=== PATIENT | male | born 1945 | race Caucasian/White ===

== ENCOUNTER → 2016-12-21 | Outpatient (CLI) | payer OTHER ==
[~2016-12-21] MED LIST: DEPO METHYLPREDNISOLONE 80 MG/ML SDV ONE; IOPAMIDOL (ISOVUE-370) 150 ML BTL IV ONE; LIDOCAINE 1% 30 ML SDV ONE; NA BICARBONATE 50 MEQ/50 ML VIAL ONE; ROPIVACAINE HCL 150 MG/30 ML INJ ONE
== END ==
LOC: FIMAGING 12:42
PROVIDERS: ATTEND Orthopaedic Surgery
DX: M16.0 Bilateral primary osteoarthritis of hip (principal)
CPT/HCPCS: 20610; J1020; J2795; Q9967

== ENCOUNTER → 2017-03-02 | Outpatient (CLI) | payer OTHER | LOC: FIMAGING 08:37 | PROVIDERS: ATTEND Orthopaedic Surgery | DX: Z01.818 Encounter for other preprocedural examination (principal); M16.12 Unilateral primary osteoarthritis, left hip ==

== ENCOUNTER 2017-06-13 06:38 | Inpatient (IN) | payer OTHER ==
--- NOTE | 2017-06-13 06:36 | PDHPUP ---
History & Physical Update H&P update statement: This history and physical update is based on an assessment of the patient which was completed after admission or registration (within 24 hours), but prior to the surgery/procedure.
--- NOTE | 2017-06-13 06:37 | PDIAF ---
- Diagnosis Diagnosis: left hip djd Code Status: Full Code - Medication Management Discharge Medications: Medications to Continue on Transfer Atorvastatin Calcium [Lipitor 20 mg (*)] 20 mg PO DAILY 12/02/13 [Last Taken Unknown] Indomethacin 75 mg PO BID 12/02/13 [Last Taken Unknown] Acetaminophen [Tylenol 325mg (*)] 4 tab PO BID PRN 05/13/17 [Last Taken Unknown] Ascorbic Acid [Vitamin C 500 mg (*)] 500 mg PO BID 05/13/17 [Last Taken Unknown] Cholecalciferol Vit D3 [Vitamin D3 2000 units tab (OTC)] 2,000 units PO DAILY [Last Taken Unknown] Cyanocobalamin [Vitamin B12 (*)] 1,000 mcg PO DAILY 05/13/17 [Last Taken Unknown ] Cyclobenzaprine [Flexeril 10 MG (*)] 10 mg PO HS 05/13/17 [Last Taken Unknown] Folic Acid [Folic Acid 1 MG (*)] 800 mcg PO DAILY 05/13/17 [Last Taken Unknown] Glucosamine/Chondroitin [Glucosamine/Chondroitin (*)] 1 each PO DAILY 05/13/17 [ Last Taken Unknown] Herbals/Supplements -Info Only 1 ea PO DAILY 05/13/17 [Last Taken Unknown] Lisinopril/Hctz 20/12.5MG [Zestoretic/Prinzide 20/12.5MG (*)] 1 ea PO BID [Last Taken Unknown] Loratadine 10 mg PO DAILY PRN 05/13/17 [Last Taken Unknown] Multivitamins [Multivitamin (*)] 1 each PO DAILY 05/13/17 [Last Taken Unknown] [place]-3 Fatty Acids [Fish Oil 1000 mg (*)] 1,000 mg PO DAILY 05/13/17 [Last Taken Unknown] Omeprazole [Prilosec 20 mg] 20 mg PO BID 05/13/17 [Last Taken Unknown] Vitamin B Complex [B Complex] 1 each PO DAILY 05/13/17 [Last Taken Unknown] amLODIPine BESYLATE [Norvasc 5 mg (*)] 5 mg PO DAILY 05/13/17 [Last Taken Unknown] prednisoLONE ACET 1% [Pred Forte 1% (*)] 1 drops EACHEYE DAILY PRN 05/13/17 [ Last Taken Unknown] Discharge Medications: Refer to the Discharge Home Medication list for PRN reason. - Orders Services needed: Physical Therapy Activity/Weight Bearing Restrictions: wbat. anterior hip precautions. daily dressing changes. no soaking or immersion. f/u at two weeks [facility]. seek attn for increasing pain, cp, sob - Follow Up Care Current Providers and Referrals: Los Alfonso MD [Primary Care Provider] -
[~2017-06-13 06:38] MED LIST changes: -DEPO METHYLPREDNISOLONE 80 MG/ML SDV ONE; -IOPAMIDOL (ISOVUE-370) 150 ML BTL IV ONE; -LIDOCAINE 1% 30 ML SDV ONE; -NA BICARBONATE 50 MEQ/50 ML VIAL ONE; +ROPI/epiNEPH/KETOROLAC/morphINE JOINT COCKTAIL IU ONE; -ROPIVACAINE HCL 150 MG/30 ML INJ ONE; +TRANEXAMIC ACID 1,860 MG in NS 100 ML IV ONE
[2017-06-13] MEDS ORDERED: LIDOCAINE 1% 2 ML INJ ID PRN (07:38)
[2017-06-13] MEDS ORDERED: LR 1,000 ML IV ONE (07:38)
[2017-06-13] MEDS ORDERED: THROMBIN (BOVINE) 5,000 UNIT VIAL TP ONE (07:48)
[2017-06-13] MEDS ORDERED: CALCIUM CHLORIDE 1 GM/10 ML INJ ONE (07:49)
[2017-06-13] MEDS ORDERED: ceFAZolin 1 GM/5 ML SYR ONE ×2 (07:50→08:13)
[2017-06-13] MEDS ORDERED: PROPOFOL/EMULSION 500 MG/50 ML BOTTLE IV ONE ×2 (07:59→09:40)
[2017-06-13] MEDS ORDERED: MIDAZOLAM 2 MG/2 ML VIAL ONE (08:01)
[2017-06-13] MEDS ORDERED: OXYCODONE/APAP 5/325 TAB PO PRN (08:02)
[2017-06-13] MEDS ORDERED: ceFAZolin 2 GM/DEXTROSE 100 ML IV ONE (08:02)
[2017-06-13] MEDS ORDERED: ALBUTEROL 3 ML DEYVIAL IH PRN (08:02)
[2017-06-13] MEDS ORDERED: NALOXONE HCL 0.4 MG/ML INJ IVP PRN (08:02)
[2017-06-13] MEDS ORDERED: ONDANSETRON 4 MG/2 ML VIAL IVP PRN ×2 (08:02→10:20)
[2017-06-13] MEDS ORDERED: HYDROCODONE/APAP 5/325 TAB PO PRN (08:02)
[2017-06-13] MEDS ORDERED: MIDAZOLAM 2 MG/2 ML VIAL IVP ONE (08:02)
[2017-06-13] MEDS ORDERED: ONDANSETRON 4 MG/2 ML VIAL ONE (08:06)
[2017-06-13] MEDS ORDERED: LIDOCAINE 2% 5 ML SDV ONE (08:06)
[2017-06-13] MEDS ORDERED: RANITIDINE 50 MG/2 ML VIAL ONE (08:06)
[2017-06-13] MEDS ORDERED: DEXAMETHASONE 4 MG/ML VIAL ONE (08:06)
--- NOTE | 2017-06-13 08:09 | PDANEPAE ---
ANE History of Present Illness L Hip Arthroplasty ANE Past Medical History - Cardiovascular History Hx Hypertension: Yes Hx Arrhythmias: No Hx Chest Pain: No Hx Coronary Artery / Peripheral Vascular Disease: No Hx CHF / Valvular Disease: No Hx Palpitations: No - Pulmonary History Hx COPD: No Hx Asthma/Reactive Airway Disease: No Hx Recent Upper Respiratory Infection: No Hx Oxygen in Use at Home: No Hx Sleep Apnea: No Sleep Apnea Screening Result - Last Documented: Positive - Neurologic History Hx Cerebrovascular Accident: No Hx Seizures: No Hx Dementia: No - Endocrine History Hx Diabetes: No - Renal History Hx Renal Disorders: No - Liver History Hx Hepatic Disorders: No - Neurological & Psychiatric Hx Hx Neurological and Psychiatric Disorders: No - Cancer History Hx Cancer: Yes Cancer History Comment: PROSTATE - Congenital Disorder History Hx Congenital Disorders: No - GI History Hx Gastrointestinal Disorders: No - Other Health History Other Health History: NONE - Chronic Pain History Chronic Pain: Yes - Surgical History Prior Surgeries: DEVIATED SEPTUM, NEREYDA SHOULDER SURGERY ANE Review of Systems Review of Systems: - Exercise capacity METS (RN): 4 METS ANE Patient History - Allergies Allergies/Adverse Reactions: CATS Allergy (Mild, Uncoded 04/13/10 09:47) ITCHY EYES ENVIRONMENTAL Allergy (Mild, Uncoded 04/13/10 09:48) SNEEZING/ITCHY, WATERY EYES - Home Medications Home Medications: Atorvastatin Calcium [Lipitor 20 mg (*)] 20 mg PO DAILY 12/02/13 [Last Taken ] Indomethacin 75 mg PO BID 12/02/13 [Last Taken 06/06/17] Acetaminophen [Tylenol 325mg (*)] 4 tab PO BID PRN 05/13/17 [Last Taken 06/08/17 ] Ascorbic Acid [Vitamin C 500 mg (*)] 500 mg PO BID 05/13/17 [Last Taken 06/12/17 ] Cholecalciferol Vit D3 [Vitamin D3 2000 units tab (OTC)] 2,000 units PO DAILY [Last Taken 06/12/17] Cyanocobalamin [Vitamin B12 (*)] 1,000 mcg PO DAILY 05/13/17 [Last Taken ] Cyclobenzaprine [Flexeril 10 MG (*)] 10 mg PO HS 05/13/17 [Last Taken 06/06/17] Folic Acid [Folic Acid 1 MG (*)] 800 mcg PO DAILY 05/13/17 [Last Taken 06/06/17] Glucosamine/Chondroitin [Glucosamine/Chondroitin (*)] 1 each PO DAILY 05/13/17 [ Last Taken 06/06/17] Herbals/Supplements -Info Only 1 ea PO DAILY 05/13/17 [Last Taken 06/12/17] Lisinopril/Hctz 20/12.5MG [Zestoretic/Prinzide 20/12.5MG (*)] 1 ea PO BID [Last Taken 06/12/17] Loratadine 10 mg PO DAILY PRN 05/13/17 [Last Taken 05/14/17] Multivitamins [Multivitamin (*)] 1 each PO DAILY 05/13/17 [Last Taken 06/06/17] [place]-3 Fatty Acids [Fish Oil 1000 mg (*)] 1,000 mg PO DAILY 05/13/17 [Last Taken 06/12/17] Omeprazole [Prilosec 20 mg] 20 mg PO BID 05/13/17 [Last Taken 06/12/17] Vitamin B Complex [B Complex] 1 each PO DAILY 05/13/17 [Last Taken 06/12/17] amLODIPine BESYLATE [Norvasc 5 mg (*)] 5 mg PO DAILY 05/13/17 [Last Taken ] prednisoLONE ACET 1% [Pred Forte 1% (*)] 1 drops EACHEYE DAILY PRN 05/13/17 [ Last Taken 06/06/17] - NPO status NPO Since - Liquids (Date): 06/12/17 NPO Since - Liquids (Time): 22:00 NPO Since - Solids (Date): 06/12/17 NPO Since - Solids (Time): 22:00 - Smoking Hx Smoking Status: Never smoked - Family Anes Hx Family Hx Anesthesia Complications: NONE ANE Labs/Vital Signs - Vital Signs Blood Pressure: 153/86 Heart Rate: 83 Respiratory Rate: 16 O2 Sat (%): 92 Height: 167.64 cm Weight: 92.986 kg ANE Physical Exam - Airway Neck exam: decreased ROM Mallampati Score: Class 2 Mouth exam: normal dental/mouth exam - Pulmonary Pulmonary: clear to auscultation - Cardiovascular Cardiovascular: regular rate and rhythym - ASA Status ASA Status: III ANE Anesthesia Plan Anesthesia Plan: spinal
[2017-06-13] MEDS ORDERED: PROPOFOL 200 MG/20 ML VIAL ONE (08:28)
[2017-06-13] MEDS ORDERED: fentaNYL 100 MCG/2 ML INJ ONE ×4 (08:30→12:06)
[2017-06-13] MEDS ORDERED: PHENYLEPHRINE HCL 100 MCG/ML SYR ONE (08:42)
[2017-06-13] MEDS ORDERED: HYDROmorphONE/DILAUDID 2 MG/ML INJ ONE (08:56)
[2017-06-13] MEDS ORDERED: TEMAZEPAM 15 MG CAP PO PRN (10:20)
[2017-06-13] MEDS ORDERED: MAGNESIUM HYDROXIDE 30 ML UDCUP PO PRN (10:20)
[2017-06-13] MEDS ORDERED: DIAZEPAM 5 MG TAB PO PRN (10:20)
[2017-06-13] MEDS ORDERED: LACTULOSE 20 GM/30 ML UDCUP PO PRN (10:20)
[2017-06-13] MEDS ORDERED: METOCLOPRAMIDE 10 MG/2 ML VIAL IVP PRN (10:20)
[2017-06-13] MEDS ORDERED: PROMETHAZINE HCL 25 MG/ML INJ IVP PRN (10:20)
[2017-06-13] MEDS ORDERED: ONDANSETRON DISINTEGRATING 4 MG TAB PO PRN (10:20)
[2017-06-13] MEDS ORDERED: PROMETHAZINE HCL 25 MG SUPPR PR PRN (10:20)
[2017-06-13] MEDS ORDERED: DIPHENOXYLATE/ATROPINE LOMOTIL 1 TAB PO PRN (10:20)
[2017-06-13] MEDS ORDERED: POLYETHYLENE GLYCOL 3350 17 GM PKT PO PRN (10:20)
[2017-06-13] MEDS ORDERED: BISACODYL 10 MG SUPP PR PRN (10:20)
[2017-06-13] MEDS ORDERED: diphenhydrAMINE 25 MG CAP PO PRN (10:20)
[2017-06-13] MEDS ORDERED: NON-FORMULARY NEW DRUG (Loratadine [Loratadine] 10 MG) PO PRN (10:21)
[2017-06-13] MEDS ORDERED: prednisoLONE ACET 1% 5 ML OPHT.BTL EACHEYE PRN (10:21)
--- NOTE | 2017-06-13 10:28 | POSTANESTH ---
Post Anesthetic Evaluation Cardiovascular Status: Normal, Stable Respiratory Status: Normal, Stable Level of Consciousness/Mental Status: Can Participate in Eval, Mildly Sleepy, Arousable Pain Control: Adequate, Prn Tx Ordered Nausea/Vomiting Control: Adequate, Prn Tx Ordered Complications Possibly Related to Anesthesia: None Noted
[2017-06-13] MEDS ORDERED: CETIRIZINE 10 MG TAB PO PRN (10:29)
[2017-06-13] MEDS ORDERED: LR 1,000 ML IV SCH (10:30)
[2017-06-13] MEDS ORDERED: HYDROmorphONE/DILAUDID 1 MG/ML INJ ONE ×2 (10:38→11:04)
[2017-06-13] MEDS: fentaNYL 100 MCG/2 ML INJ IVP PRN ×4 (10:45→12:13)
[2017-06-13] MEDS: HYDROmorphONE/DILAUDID 1 MG/ML INJ IVP PRN ×3 (10:46→11:15)
[2017-06-13] MEDS ORDERED: HYDROCODONE/APAP 5/325 TAB ONE (11:30)
[2017-06-13] MEDS: ACETAMINOPHEN 325 MG TAB PO SCH ×3 (12:23→23:53)
[2017-06-13] MEDS: oxyCODONE IR 5 MG TAB PO PRN ×4 (12:23→23:52)
[2017-06-13] MEDS: TRANEXAMIC ACID 650 MG TAB PO SCH ×2 (14:39→18:15)
[2017-06-13] MEDS: ceFAZolin 2 GM/DEXTROSE 100 ML IV SCH ×2 (16:02→23:51)
[2017-06-13] MEDS: ASPIRIN 325 MG TAB PO SCH (21:25)
[2017-06-13] MEDS: CYCLOBENZAPRINE 10 MG TAB PO SCH (21:26)
[2017-06-13] MEDS: LISINOPRIL/HCTZ 20/12.5MG 1 EA TAB PO SCH (21:27)
[2017-06-13] MEDS: FAMOTIDINE 20 MG TAB PO SCH (21:28)
[2017-06-13] MEDS: SENNOSIDES/DOCUSATE SODIUM TAB PO SCH (21:28)
[2017-06-14] MEDS: CYCLOBENZAPRINE 10 MG TAB PO SCH (02:31)
[2017-06-14] MEDS: oxyCODONE IR 5 MG TAB PO PRN ×3 (02:31→09:30)
[2017-06-14] MEDS: TRANEXAMIC ACID 650 MG TAB PO SCH (02:32)
[2017-06-14 05:26] VITALS: RESP 18
[2017-06-14 05:30] LABS: HEMATOCRIT 39.8 % (40.0-51.0)
[2017-06-14] MEDS: ACETAMINOPHEN 325 MG TAB PO SCH (06:06)
--- NOTE | 2017-06-14 07:16 | PDIAF ---
- Diagnosis Diagnosis: left hip djd Code Status: Full Code - Medication Management Discharge Medications: Medications to Continue on Transfer Atorvastatin Calcium [Lipitor 20 mg (*)] 20 mg PO DAILY 12/02/13 [Last Taken ] Indomethacin 75 mg PO BID 12/02/13 [Last Taken 06/06/17] Acetaminophen [Tylenol 325mg (*)] 4 tab PO BID PRN 05/13/17 [Last Taken 06/08/17 ] Ascorbic Acid [Vitamin C 500 mg (*)] 500 mg PO BID 05/13/17 [Last Taken 06/12/17 ] Cholecalciferol Vit D3 [Vitamin D3 2000 units tab (OTC)] 2,000 units PO DAILY [Last Taken 06/12/17] Cyanocobalamin [Vitamin B12 (*)] 1,000 mcg PO DAILY 05/13/17 [Last Taken ] Cyclobenzaprine [Flexeril 10 MG (*)] 10 mg PO HS 05/13/17 [Last Taken 06/06/17] Folic Acid [Folic Acid 1 MG (*)] 800 mcg PO DAILY 05/13/17 [Last Taken 06/06/17] Glucosamine/Chondroitin [Glucosamine/Chondroitin (*)] 1 each PO DAILY 05/13/17 [ Last Taken 06/06/17] Herbals/Supplements -Info Only 1 ea PO DAILY 05/13/17 [Last Taken 06/12/17] Lisinopril/Hctz 20/12.5MG [Zestoretic/Prinzide 20/12.5MG (*)] 1 ea PO BID [Last Taken 06/12/17] Loratadine 10 mg PO DAILY PRN 05/13/17 [Last Taken 05/14/17] Multivitamins [Multivitamin (*)] 1 each PO DAILY 05/13/17 [Last Taken 06/06/17] [place]-3 Fatty Acids [Fish Oil 1000 mg (*)] 1,000 mg PO DAILY 05/13/17 [Last Taken 06/12/17] Omeprazole [Prilosec 20 mg] 20 mg PO BID 05/13/17 [Last Taken 06/12/17] Vitamin B Complex [B Complex] 1 each PO DAILY 05/13/17 [Last Taken 06/12/17] amLODIPine BESYLATE [Norvasc 5 mg (*)] 5 mg PO DAILY 05/13/17 [Last Taken ] prednisoLONE ACET 1% [Pred Forte 1% (*)] 1 drops EACHEYE DAILY PRN 05/13/17 [ Last Taken 06/06/17] Aspirin [Aspirin 325 mg (*)] 325 mg PO DAILY tab 06/14/17 [Last Taken Unknown] oxyCODONE IR [Oxycodone Ir (*)] 5 - 10 mg PO Q3HRS PRN #70 tab 06/14/17 [Last Taken Unknown] Discharge Medications: Refer to the Discharge Home Medication list for PRN reason. - Orders Services needed: Physical Therapy Diet Recommendation: no restrictions on diet Diet Texture: Regular Texture Diet Activity/Weight Bearing Restrictions: wbat. anterior hip precautions. daily dressing changes. no soaking or immersion. f/u at two weeks [facility]. seek attn for increasing pain, cp, sob - Follow Up Care Current Providers and Referrals: Los Alfonso MD [Medical Doctor] -
--- NOTE | 2017-06-14 07:58 | GDS ---
[f rep st] DISCHARGE SUMMARY ADMIT DIAGNOSIS: Left hip degenerative joint disease. DISCHARGE DIAGNOSIS: Left hip degenerative joint disease. PROCEDURE: Left total hip arthroplasty. HISTORY OF PRESENT ILLNESS: The patient is a 71-year-old gentleman with end-stage arthritis to his l eft hip. Clinical and radiographic features are consistent with this. He has failed all attempts at conservative management. I have, therefore, recommended operative intervention. I have outlined th e surgical procedure, risks, benefits, and alternatives. He wished to proceed. Written consent was signed and placed in patient's chart. HOSPITAL COURSE: The patient was admitted to the hospital floor after uncomplicated total hip arthro plasty. He tolerated the procedure well. Overnight he had no specific complications. At the time o f discharge, he is tolerating an oral diet. His pain is well controlled on oral medicines. He is vo iding without difficulty. His dressings are clean, dry, and intact. Serial hematocrits have remaine d stable. His blood pressure is stable. DISCHARGE ACTIVITIES: He is weightbearing as tolerated. Anterior hip precautions. Daily dressing c hanges. May shower without the bandage. No soaking or immersion. FOLLOWUP: Follow up in 2 weeks. Seek attention for increasing redness, swelling, drainage, discharg e, calf swelling, or other focal complaint. /[id number]/MODL
[2017-06-14 08:18] VITALS: BP 123/70; PULSE 80; TEMP 97.8; O2SAT 91
[2017-06-14] MEDS: ASPIRIN 325 MG TAB PO SCH (08:46)
[2017-06-14] MEDS: FAMOTIDINE 20 MG TAB PO SCH (08:47)
[2017-06-14] MEDS: LISINOPRIL/HCTZ 20/12.5MG 1 EA TAB PO SCH (08:47)
[2017-06-14] MEDS: SENNOSIDES/DOCUSATE SODIUM TAB PO SCH (08:48)
[2017-06-14] MEDS ORDERED: amLODIPine BESYLATE 5 MG TAB PO SCH (09:00)
[2017-06-14] MEDS ORDERED: ATORVASTATIN CALCIUM 20 MG TAB PO SCH (09:00)
[2017-06-14] MEDS ORDERED: CYANO/VITAMIN B12 1000 MCG TAB PO SCH (09:00)
[2017-06-14] MEDS ORDERED: VITAMIN B COMPLEX 1 EA CAP/TAB PO SCH (09:00)
--- NOTE | 2017-06-14 15:17 | ASDISCHSUM ---
Discharge Information Plan Status:Home with No Needs Medically Cleared to Leave: Discharge Date:06/14/2017 12:32 PM CM D/C Disposition:Home, Routine, Self-Care ADT D/C Disposition:Home Health Service Projected Discharge Date:06/14/2017 12:32 PM Transportation at D/C: Discharge Delay Reason: Follow-Up Date:06/14/2017 12:32 PM Discharge Slot: Final Diagnosis: Placement Information Patient Contact Information Contact Name:ROCKY Relationship: Address:[address] Work Phone: City:[facility] Phone: State/Zip Code:[place] [address] Email: Financial Information Financial Class: Primary Plan Desc:MEDICARE INPATIENT Primary Plan Number:[id number] Secondary Plan Desc:MARY VANDANA PPO Secondary Plan Number:[id number] Assessment Information BC CM Progress Note CM Note CM Note Notes: PT rec home w sup vs. outpatient. No CM d/c needs identified. Date Signed: 06/14/2017 03:17 PM Electronically Signed By:JEFFREY Melendez Intervention Information
--- NOTE | 2017-06-15 10:38 | GOP ---
[f rep st] OPERATIVE REPORT DATE OF OPERATION: 06/13/2017 SURGEON: Los Alfonso MD DESULFURIZER OPERATOR: Fadi Bliss MD, who was a medical necessity for the entirety of the case. PREOPERATIVE DIAGNOSIS: Left hip degenerative joint disease. POSTOPERATIVE DIAGNOSIS: Left hip degenerative joint disease. PROCEDURE PERFORMED: Left total hip arthroplasty. FINDINGS: SPECIMENS: To Pathology is femoral head. INDICATIONS: The patient is a 71-year-old gentleman, who has end-stage arthritis to his left hip. C linical and radiographic features are consistent with this. He has failed all attempts at conservati ve management. I have, therefore, recommended total hip replacement. He understood the risks, benef its, alternatives, and wished to proceed. Written consent was signed and placed in the patient's [facility] rt. DESCRIPTION OF PROCEDURE: The patient was identified in the preanesthesia area. The left hip clearl y demarcated as the operative site with indelible marker. He was given 2 g of Ancef intravenously en route to the operative suite. In the OR, general endotracheal anesthesia was administered. The pat ient was positioned in the supine position. The pelvis and both lower extremities were sterilely pre pped and draped in the usual fashion. Attention was first turned to the right hip. Appropriate time -out procedure was carried out. A 2 cm incision was made over the iliac crest, and [address] The pelvic reference array was affixed in standard fashion. Attention was then turned to the lef t hip. An anterior incision was made. Thick subcutaneous flaps were elevated. The fascia overlying the tensor was elevated and the tensor retracted laterally. The underlying vascular structures were identified, ligated, and cauterized. The rectus was then elevated off the anterior capsule. Retrac tors were placed over the medial femoral neck and superior femoral neck. A T was made in the capsule to the intertrochanteric line. Retractors were then placed into an intracapsular position. An acet abular checkpoint was then placed. A bony wedge was then removed from the femur, followed by the fem oral head. The remnants of the acetabular labrum were sharply excised. The bony landmarks were then entered into the computer in standard fashion. Using a MAKOplasty robotic guidance, a 54 mm reamer was placed in an opening angle of 40 degrees and anteversion of 20 degrees. This was placed to the a ppropriate depth. A 54 mm hemispherical shell was then impacted, confirmed to be fully seated and st able. A 0-degree X3 polyethylene liner was then placed, confirmed to be fully seated. Attention was turned to the femur which was delivered through the use of extension of the table, soft tissue relea ses, and retractors. The proximal canal was opened. Serial broaching was carried out to a size 5 st em. A 127-degree size 5 stem was then impacted, and trialing was carried out with a 36 mm, -5 mm nec k length selected to restore appropriate leg length. Stability profile demonstrated full extension a nd external rotation without instability. Intraoperative fluoroscopy was utilized to confirm compone nt positioning. The femoral components were removed. The 127-degree neck angle stem was then impacted and confirmed to be fully seated. A 36 mm, -5 mm neck length ceramic head was then impacted across the trunnion. The wound was copiously irrigated, the hip reduced. Stability profile was appropriate. The wound wa s then closed in layers using 0 Vicryl, 2-0 Monocryl, and alexus. All skin margins were instilled w ith a joint cocktail of ropivacaine, morphine, Toradol, and epinephrine. The joint was instilled wit h a platelet-rich plasma solution. Sterile dressing was applied. The patient was awakened, extubate d, taken to recovery room in good, stable condition. Total tourniquet time none. COMPLICATIONS: None. IMPLANTS: Carpenter Titanium acetabular shell, size 54 mm; Trident X3 0-degree polyethylene insert; 36 mm inner diameter Biolox Delta ceramic head, 36 mm, -5 mm neck length; and Accolade II 127-degree ne ck angle hip stem size 5. DISPOSITION: To the recovery room, then the floor. He is weightbearing, anterior hip precautions. Standard followup. /[id number]/MODL
== END 2017-06-14 12:32 | disposition home health service (06) | DRG 470 ==
LOC: F3N 06:38
PROVIDERS: ADMIT Orthopaedic Surgery; ATTEND Orthopaedic Surgery
PROC: 8E0Y0CZ Robotic Assisted Procedure of Lower Extremity, Open Approach (ICD-10-PCS; principal; 2017-06-13 08:15)
PROC: 0SRB04Z Replacement of Left Hip Joint with Ceramic on Polyethylene Synthetic Substitute, Open Approach (ICD-10-PCS; principal; 2017-06-13 08:15)
DX: M16.12 Unilateral primary osteoarthritis, left hip (principal); E78.00 Pure hypercholesterolemia, unspecified; K22.70 Barrett's esophagus without dysplasia
CPT/HCPCS: 97110-GP; 97116-GP; 97161-GP; 97165-GO; G8978-GP-CI; G8979-GP-CH; G8979-GP-CI; G8980-GP-CI; G8987-GO-CI; G8988-GO-CI; G8989-GO-CI; J0171; J0690; J1100; J1170; J1885; J2250; J2370; J2405; J2704; J2780; J2795; J3010

== ENCOUNTER → 2017-07-28 | Outpatient (CLI) | payer OTHER | LOC: BMCIMAGING 09:14 | PROVIDERS: ATTEND Orthopaedic Surgery | DX: Z47.1 Aftercare following joint replacement surgery (principal); Z96.642 Presence of left artificial hip joint ==

== ENCOUNTER → 2017-08-09 | Outpatient (CLI) | payer OTHER | LOC: FIMAGING 10:45 | PROVIDERS: ATTEND Orthopaedic Surgery | DX: Z01.818 Encounter for other preprocedural examination (principal); M16.11 Unilateral primary osteoarthritis, right hip ==

== ENCOUNTER 2017-09-05 09:17 | Inpatient (IN) | payer OTHER ==
--- NOTE | 2017-09-05 06:39 | PDIAF ---
- Diagnosis Diagnosis: right hip arthritis Code Status: Full Code - Medication Management Discharge Medications: Medications to Continue on Transfer Indomethacin 75 mg PO BID 12/02/13 [Last Taken 06/06/17] Acetaminophen [Tylenol 325mg (*)] 4 tab PO BID PRN 05/13/17 [Last Taken 06/08/17 ] Ascorbic Acid [Vitamin C 500 mg (*)] 500 mg PO BID 05/13/17 [Last Taken 06/12/17 ] Cholecalciferol Vit D3 [Vitamin D3 2000 units tab (OTC)] 2,000 units PO DAILY [Last Taken 06/12/17] Cyanocobalamin [Vitamin B12 (*)] 1,000 mcg PO DAILY 05/13/17 [Last Taken ] Cyclobenzaprine [Flexeril 10 MG (*)] 10 mg PO HS 05/13/17 [Last Taken 06/06/17] Folic Acid [Folic Acid 1 MG (*)] 800 mcg PO DAILY 05/13/17 [Last Taken 06/06/17] Glucosamine/Chondroitin [Glucosamine/Chondroitin (*)] 1 each PO DAILY 05/13/17 [ Last Taken 06/06/17] Herbals/Supplements -Info Only 1 ea PO DAILY 05/13/17 [Last Taken 06/12/17] Lisinopril/Hctz 20/12.5MG [Zestoretic/Prinzide 20/12.5MG (*)] 1 ea PO BID [Last Taken 06/12/17] Loratadine 10 mg PO DAILY PRN 05/13/17 [Last Taken 05/14/17] Multivitamins [Multivitamin (*)] 1 each PO DAILY 05/13/17 [Last Taken 06/06/17] [place]-3 Fatty Acids [Fish Oil 1000 mg (*)] 1,000 mg PO DAILY 05/13/17 [Last Taken 06/12/17] Omeprazole [Prilosec 20 mg] 20 mg PO BID 05/13/17 [Last Taken 06/12/17] Vitamin B Complex [B Complex] 1 each PO DAILY 05/13/17 [Last Taken 06/12/17] amLODIPine BESYLATE [Norvasc 5 mg (*)] 5 mg PO DAILY 05/13/17 [Last Taken ] prednisoLONE ACET 1% [Pred Forte 1% (*)] 1 drops EACHEYE DAILY PRN 05/13/17 [ Last Taken 06/06/17] Aspirin [Aspirin 325 mg (*)] 325 mg PO DAILY tab 06/14/17 [Last Taken Unknown] Albuterol [Proventil Inhaler HFA (*)] 1 - 2 puffs IH DAILY PRN 08/03/17 [Last Taken Unknown] Rosuvastatin Calcium [Crestor 40mg (*)] 40 mg PO DAILY 08/03/17 [Last Taken Unknown] Discharge Medications: Refer to the Discharge Home Medication list for PRN reason. - Orders Services needed: Home Care, Physical Therapy Home Care Face to Face: I certify that this patient was under my care and that I had the required [id number] encounter meeting the encounter requirements on the discharge day. My findings support the fact that the patient is homebound as defined in Home Care Face to Face Continued: CMS Chapter 7 Medicare Benefits Manual 30.1.1 , The condition of the patient is such that there exists a normal inability to leave home and consequently, leaving home would require a considerable and taxing effort. Diet Recommendation: no restrictions on diet Diet Texture: Regular Texture Diet Activity/Weight Bearing Restrictions: wbat. anterior hip precautions. daily dressing changes. ice prn. laura hose x 2 weeks. f/u at two weeks as previously scheduled. aspirin 325 mg po daily for six weeks. seek attn for increasing pain, cp, sob, drainage. fevers or other focal complaints - Follow Up Care Current Providers and Referrals: Will Bullock MD [Primary Care Provider] -
[~2017-09-05 09:17] MED LIST changes: +NS IV ONE; -ROPI/epiNEPH/KETOROLAC/morphINE JOINT COCKTAIL IU ONE; +ROPIVACAINE 0.2% 80 MG, EPINEPHrine 0.2 MG, KETOROLAC TROMETHAMINE 30 MG, morphINE 10 M... IU ONE; -TRANEXAMIC ACID 1,860 MG in NS 100 ML IV ONE; +TRANEXAMIC ACID IV ONE
[2017-09-05] MEDS ORDERED: FAMOTIDINE 20 MG TAB PO ONE (13:09)
[2017-09-05] MEDS ORDERED: ACETAMINOPHEN 325 MG TAB PO ONE (13:09)
[2017-09-05] MEDS ORDERED: ceFAZolin 2 GM/SWFI 2 GM/20 ML SYR IVP ONE (13:09)
[2017-09-05] MEDS ORDERED: LR 1,000 ML IV ONE (13:11)
[2017-09-05] MEDS ORDERED: LIDOCAINE 1% 2 ML INJ ID PRN (13:11)
--- NOTE | 2017-09-05 13:46 | PDANEPAE ---
ANE History of Present Illness 71 yo male with ankylosing spondylitis for R ATIF (had L ATIF in May 2017 under [place]). ANE Past Medical History - Cardiovascular History Hx Hypertension: Yes Hx Arrhythmias: No Hx Chest Pain: No Hx Coronary Artery / Peripheral Vascular Disease: No Hx CHF / Valvular Disease: No Hx Palpitations: No - Pulmonary History Hx COPD: No Hx Asthma/Reactive Airway Disease: No Hx Recent Upper Respiratory Infection: No Hx Oxygen in Use at Home: No Hx Sleep Apnea: Yes Sleep Apnea Screening Result - Last Documented: Positive Pulmonary History Comment: + JOVANNI sleep study in 2008. Pt says he was upset during the study due to a family situation, and does not believe the results. Will not use CPAP. - Neurologic History Hx Cerebrovascular Accident: No Hx Seizures: No Hx Dementia: No - Endocrine History Hx Diabetes: No Obesity: moderate - Renal History Hx Renal Disorders: No - Liver History Hx Hepatic Disorders: No - Neurological & Psychiatric Hx Hx Neurological and Psychiatric Disorders: No - Cancer History Hx Cancer: Yes Cancer History Comment: PROSTATE - Congenital Disorder History Hx Congenital Disorders: No - GI History GERD: mild Hx Gastrointestinal Disorders: No - Other Health History Other Health History: NONE - Chronic Pain History Chronic Pain: Yes - Surgical History Prior Surgeries: DEVIATED SEPTUM, NEREYDA SHOULDER SURGERY ANE Review of Systems Review of Systems: - Exercise capacity METS (RN): 4 METS - Systems Constitutional: Reports: weight loss (10 pounds since May) Cardiac: Reports: no symptoms Respiratory: Reports: other (always feels restricted secondary to ankylosing spondylitis per pt) Muscolosketal: Reports: joint pain ANE Patient History - Allergies Allergies/Adverse Reactions: CATS Allergy (Mild, Uncoded 04/13/10 09:47) ITCHY EYES ENVIRONMENTAL Allergy (Mild, Uncoded 04/13/10 09:48) SNEEZING/ITCHY, WATERY EYES - Home Medications Home Medications: Indomethacin 75 mg PO BID 12/02/13 [Last Taken 08/29/17] Acetaminophen [Tylenol 325mg (*)] 4 tab PO BID PRN 05/13/17 [Last Taken 09/04/17 ] Ascorbic Acid [Vitamin C 500 mg (*)] 500 mg PO BID 05/13/17 [Last Taken 08/29/17 ] Cholecalciferol Vit D3 [Vitamin D3 2000 units tab (OTC)] 2,000 units PO DAILY [Last Taken 08/29/17] Cyanocobalamin [Vitamin B12 (*)] 1,000 mcg PO DAILY 05/13/17 [Last Taken ] Cyclobenzaprine [Flexeril 10 MG (*)] 10 mg PO HS 05/13/17 [Last Taken 09/03/17] Folic Acid [Folic Acid 1 MG (*)] 800 mcg PO DAILY 05/13/17 [Last Taken 08/29/17] Glucosamine/Chondroitin [Glucosamine/Chondroitin (*)] 1 each PO DAILY 05/13/17 [ Last Taken 08/29/17] Herbals/Supplements -Info Only 1 ea PO DAILY 05/13/17 [Last Taken 08/29/17] Lisinopril/Hctz 20/12.5MG [Zestoretic/Prinzide 20/12.5MG (*)] 1 ea PO BID [Last Taken 09/04/17] Loratadine 10 mg PO DAILY PRN 05/13/17 [Last Taken 05/14/17] Multivitamins [Multivitamin (*)] 1 each PO DAILY 05/13/17 [Last Taken 08/29/17] [place]-3 Fatty Acids [Fish Oil 1000 mg (*)] 1,000 mg PO DAILY 05/13/17 [Last Taken 08/29/17] Omeprazole [Prilosec 20 mg] 20 mg PO BID 05/13/17 [Last Taken 09/04/17] Vitamin B Complex [B Complex] 1 each PO DAILY 05/13/17 [Last Taken 08/29/17] amLODIPine BESYLATE [Norvasc 5 mg (*)] 5 mg PO DAILY 05/13/17 [Last Taken ] prednisoLONE ACET 1% [Pred Forte 1% (*)] 1 drops EACHEYE DAILY PRN 05/13/17 [ Last Taken 08/22/17] Albuterol [Proventil Inhaler HFA (*)] 1 - 2 puffs IH DAILY PRN 08/03/17 [Last Taken 06/07/17] Rosuvastatin Calcium [Crestor 40mg (*)] 40 mg PO DAILY 08/03/17 [Last Taken ] - Anes Hx Hx Anesthesia Complications (with details): Low SpO2 after surgery. - Smoking Hx Smoking Status: Never smoked - Alcohol Use Alcohol Use: Rarely - Family Anes Hx Family Anes Hx: neg - N/A Family Hx Anesthesia Complications: NONE ANE Labs/Vital Signs - Vital Signs Height: 167.64 cm Weight: 88.451 kg ANE Physical Exam - Airway Neck exam: decreased ROM Mallampati Score: Class 3 Mouth exam: abnormal chin - Pulmonary Pulmonary: reduced air movement - Cardiovascular Cardiovascular: regular rate and rhythym - ASA Status ASA Status: III ANE Anesthesia Plan Anesthesia Plan: GA w LMA, spinal (unlikely to be successful with spinal, but pt would like me to try)
[2017-09-05] MEDS ORDERED: LIDOCAINE 2% 5 ML SDV ONE (13:59)
[2017-09-05] MEDS ORDERED: ONDANSETRON 4 MG/2 ML VIAL ONE (13:59)
[2017-09-05] MEDS ORDERED: DEXAMETHASONE 4 MG/ML VIAL ONE (13:59)
[2017-09-05] MEDS ORDERED: fentaNYL 100 MCG/2 ML INJ ONE ×3 (14:00→17:23)
[2017-09-05] MEDS ORDERED: PROPOFOL/EMULSION 500 MG/50 ML BOTTLE IV ONE ×2 (14:00→14:31)
[2017-09-05] MEDS ORDERED: PROPOFOL 200 MG/20 ML VIAL ONE (16:05)
[2017-09-05] MEDS ORDERED: MAGNESIUM HYDROXIDE 30 ML UDCUP PO PRN (16:08)
[2017-09-05] MEDS ORDERED: PROMETHAZINE HCL 25 MG/ML INJ IVP PRN (16:08)
[2017-09-05] MEDS ORDERED: LACTULOSE 20 GM/30 ML UDCUP PO PRN (16:08)
[2017-09-05] MEDS ORDERED: POLYETHYLENE GLYCOL 3350 17 GM PKT PO PRN (16:08)
[2017-09-05] MEDS ORDERED: DIAZEPAM 5 MG TAB PO PRN (16:08)
[2017-09-05] MEDS ORDERED: ONDANSETRON 4 MG/2 ML VIAL IVP PRN ×2 (16:08→16:11)
[2017-09-05] MEDS ORDERED: METOCLOPRAMIDE 10 MG/2 ML VIAL IVP PRN (16:08)
[2017-09-05] MEDS ORDERED: PROMETHAZINE HCL 25 MG SUPPR PR PRN (16:08)
[2017-09-05] MEDS ORDERED: diphenhydrAMINE 25 MG CAP PO PRN (16:08)
[2017-09-05] MEDS ORDERED: ONDANSETRON DISINTEGRATING 4 MG TAB PO PRN (16:08)
[2017-09-05] MEDS ORDERED: DIPHENOXYLATE/ATROPINE LOMOTIL 1 TAB PO PRN (16:08)
[2017-09-05] MEDS ORDERED: TEMAZEPAM 15 MG CAP PO PRN (16:08)
[2017-09-05] MEDS ORDERED: BISACODYL 10 MG SUPP PR PRN (16:08)
[2017-09-05] MEDS ORDERED: ALBUTEROL 60 PUFFS/8 GM MDI IH PRN (16:09)
[2017-09-05] MEDS ORDERED: prednisoLONE ACET 1% 5 ML OPHT.BTL EACHEYE PRN (16:09)
[2017-09-05] MEDS ORDERED: ENALAPRILAT DIHYDRATE 1.25 MG/ML VIAL IVP PRN (16:11)
[2017-09-05] MEDS ORDERED: ALBUTEROL 3 ML DEYVIAL IH PRN (16:11)
[2017-09-05] MEDS ORDERED: DIAZEPAM 10 MG/2 ML SYR IVP PRN (16:11)
[2017-09-05] MEDS ORDERED: OXYCODONE/APAP 5/325 TAB PO PRN (16:11)
[2017-09-05] MEDS ORDERED: ACETAMINOPHEN 500 MG TAB PO PRN (16:11)
[2017-09-05] MEDS ORDERED: NALOXONE HCL 0.4 MG/ML INJ IVP PRN (16:11)
[2017-09-05] MEDS ORDERED: LR 1,000 ML IV SCH (16:30)
--- NOTE | 2017-09-05 16:31 | POSTANESTH ---
Post Anesthetic Evaluation Cardiovascular Status: Normal, Stable Respiratory Status: Normal, Stable Level of Consciousness/Mental Status: Can Participate in Eval, Mildly Sleepy, Arousable Pain Control: Inadeq, Add Tx Required (05/29 pain in R hip "aches") Nausea/Vomiting Control: Adequate, Prn Tx Ordered Complications Possibly Related to Anesthesia: None Noted
[2017-09-05] MEDS ORDERED: DIAZEPAM 10 MG/2 ML SYR ONE (16:35)
[2017-09-05] MEDS: fentaNYL 100 MCG/2 ML INJ IVP PRN ×4 (17:02→17:43)
[2017-09-05] MEDS ORDERED: OXYCODONE/APAP 5/325 TAB ONE (17:24)
[2017-09-05] MEDS: ACETAMINOPHEN 325 MG TAB PO SCH (18:33)
[2017-09-05] MEDS: TRANEXAMIC ACID 650 MG TAB PO SCH (18:33)
[2017-09-05] MEDS: LISINOPRIL/HCTZ 20/12.5MG 1 EA TAB PO SCH (21:38)
[2017-09-05] MEDS: ASPIRIN 325 MG TAB PO SCH (21:39)
[2017-09-05] MEDS: SENNOSIDES/DOCUSATE SODIUM TAB PO SCH (21:39)
[2017-09-05] MEDS: FAMOTIDINE 20 MG TAB PO SCH (21:40)
[2017-09-05] MEDS: PANTOPRAZOLE SODIUM 40 MG TAB PO SCH (21:40)
[2017-09-05] MEDS: oxyCODONE IR 5 MG TAB PO PRN (21:40)
[2017-09-05] MEDS: ceFAZolin 2 GM/SWFI 2 GM/20 ML SYR IVP SCH (21:41)
[2017-09-05] MEDS ORDERED: ceFAZolin 2 GM/DEXTROSE 100 ML IV SCH (22:00)
[2017-09-06] MEDS: TRANEXAMIC ACID 650 MG TAB PO SCH ×2 (00:40→07:56)
[2017-09-06] MEDS: ACETAMINOPHEN 325 MG TAB PO SCH ×2 (00:40→05:05)
[2017-09-06] MEDS: oxyCODONE IR 5 MG TAB PO PRN ×4 (01:41→09:29)
[2017-09-06 04:29] VITALS: TEMP 97.7
[2017-09-06] MEDS: ceFAZolin 2 GM/SWFI 2 GM/20 ML SYR IVP SCH (05:05)
--- NOTE | 2017-09-06 07:20 | PDIAF ---
- Diagnosis Diagnosis: right hip arthritis Code Status: Full Code - Medication Management Discharge Medications: Medications to Continue on Transfer Acetaminophen [Tylenol 325mg (*)] 4 tab PO BID PRN 05/13/17 [Last Taken 09/04/17 ] Ascorbic Acid [Vitamin C 500 mg (*)] 500 mg PO BID 05/13/17 [Last Taken 08/29/17 ] Cholecalciferol Vit D3 [Vitamin D3 2000 units tab (OTC)] 2,000 units PO DAILY [Last Taken 08/29/17] Cyanocobalamin [Vitamin B12 (*)] 1,000 mcg PO DAILY 05/13/17 [Last Taken ] Cyclobenzaprine [Flexeril 10 MG (*)] 10 mg PO HS 05/13/17 [Last Taken 09/03/17] Folic Acid [Folic Acid 1 MG (*)] 800 mcg PO DAILY 05/13/17 [Last Taken 08/29/17] Glucosamine/Chondroitin [Glucosamine/Chondroitin (*)] 1 each PO DAILY 05/13/17 [ Last Taken 08/29/17] Herbals/Supplements -Info Only 1 ea PO DAILY 05/13/17 [Last Taken 08/29/17] Lisinopril/Hctz 20/12.5MG [Zestoretic/Prinzide 20/12.5MG (*)] 1 ea PO BID [Last Taken 09/04/17] Loratadine 10 mg PO DAILY PRN 05/13/17 [Last Taken 05/14/17] Multivitamins [Multivitamin (*)] 1 each PO DAILY 05/13/17 [Last Taken 08/29/17] Kanosh-3 Fatty Acids [Fish Oil 1000 mg (*)] 1,000 mg PO DAILY 05/13/17 [Last Taken 08/29/17] Omeprazole [Prilosec 20 mg] 20 mg PO BID 05/13/17 [Last Taken 09/04/17] Vitamin B Complex [B Complex] 1 each PO DAILY 05/13/17 [Last Taken 08/29/17] amLODIPine BESYLATE [Norvasc 5 mg (*)] 5 mg PO DAILY 05/13/17 [Last Taken ] prednisoLONE ACET 1% [Pred Forte 1% (*)] 1 drops EACHEYE DAILY PRN 05/13/17 [ Last Taken 08/22/17] Aspirin [Aspirin 325 mg (*)] 325 mg PO DAILY tab 06/14/17 [Last Taken 08/15/17] Albuterol [Proventil Inhaler HFA (*)] 1 - 2 puffs IH DAILY PRN 08/03/17 [Last Taken 06/07/17] Rosuvastatin Calcium [Crestor 40mg (*)] 40 mg PO DAILY 08/03/17 [Last Taken ] Aspirin [Aspirin 325 mg (*)] 325 mg PO DAILY tab 09/06/17 [Last Taken Unknown] oxyCODONE IR [Oxycodone Ir (*)] 5 - 10 mg PO Q3HRS PRN #90 tab 09/06/17 [Last Taken Unknown] Discharge Medications: Refer to the Discharge Home Medication list for PRN reason. - Orders Services needed: Home Care, Physical Therapy Home Care Face to Face: I certify that this patient was under my care and that I had the required [id number] encounter meeting the encounter requirements on the discharge day. My findings support the fact that the patient is homebound as defined in Home Care Face to Face Continued: CMS Chapter 7 Medicare Benefits Manual 30.1.1 , The condition of the patient is such that there exists a normal inability to leave home and consequently, leaving home would require a considerable and taxing effort. Diet Recommendation: no restrictions on diet Diet Texture: Regular Texture Diet Activity/Weight Bearing Restrictions: wbat. anterior hip precautions. daily dressing changes. ice prn. laura hose x 2 weeks. f/u at two weeks as previously scheduled. aspirin 325 mg po daily for six weeks. seek attn for increasing pain, cp, sob, drainage. fevers or other focal complaints - Follow Up Care Current Providers and Referrals: Will Bullock MD [Primary Care Provider] - Los Alfonso MD [Medical Doctor] -
[2017-09-06] MEDS: PANTOPRAZOLE SODIUM 40 MG TAB PO SCH (07:52)
[2017-09-06] MEDS: ASPIRIN 325 MG TAB PO SCH (07:52)
[2017-09-06] MEDS: SENNOSIDES/DOCUSATE SODIUM TAB PO SCH (07:53)
[2017-09-06] MEDS: FAMOTIDINE 20 MG TAB PO SCH (07:53)
[2017-09-06 08:11] VITALS: PULSE 90; RESP 16; O2SAT 93
[2017-09-06] MEDS ORDERED: amLODIPine BESYLATE 5 MG TAB PO SCH (09:00)
[2017-09-06] MEDS ORDERED: ROSUVASTATIN CALCIUM 40 MG TAB PO SCH (09:00)
[2017-09-06] MEDS ORDERED: CETIRIZINE 10 MG TAB PO PRN (09:00)
[2017-09-06 09:09] LABS: HEMATOCRIT 37.3 % (40.0-51.0); HEMOGLOBIN 12.7 g/dL (13.7-17.5)
[2017-09-06] MEDS: LISINOPRIL/HCTZ 20/12.5MG 1 EA TAB PO SCH (10:27)
[2017-09-06 10:28] VITALS: BP 135/78
--- NOTE | 2017-09-06 11:08 | ASDISCHSUM ---
Discharge Information Plan Status:Home with No Needs Medically Cleared to Leave: Discharge Date:09/06/2017 10:52 AM CM D/C Disposition:Home, Routine, Self-Care ADT D/C Disposition:Home, Routine, Self-Care Projected Discharge Date:09/06/2017 10:52 AM Transportation at D/C: Discharge Delay Reason: Follow-Up Date:09/06/2017 10:52 AM Discharge Slot: Final Diagnosis: Placement Information Patient Contact Information Contact Name:ROCKY Relationship: Address:[address] [place] [address] Work Phone: City:[facility] Phone: [facility]/Zip Code:[place] [address] Email: Financial Information Financial Class: Primary Plan Desc:MEDICARE INPATIENT Primary Plan Number:[id number] Secondary Plan Desc:MARY PPO Secondary Plan Number:[id number] Assessment Information CM Software Support Analyst Assessment CM Note CM Note Notes: Miguel Angel had this surgery on the other side of his hip 3 months ago. Miguel Angel is planning to discharge home, independently with his 's support. They have all the information saved from the previous surgery and are well prepared. Date Signed: 09/02/2017 08:58 AM Electronically Signed By:Anya Calabrese [facility] CM Progress Note CM Note CM Note Notes: PT/OT clear pt for home. Pt medically stable for d/c, no CM d/c needs identified. Date Signed: 09/06/2017 11:08 AM Electronically Signed By:JEFFREY Melendez Intervention Information
--- NOTE | 2017-09-06 17:36 | GDS ---
[f rep st] DISCHARGE SUMMARY ADMIT DIAGNOSIS: Right hip degenerative joint disease. DISCHARGE DIAGNOSIS: Right hip degenerative joint disease. PROCEDURE: Right total hip arthroplasty. HISTORY OF PRESENT ILLNESS: The patient is a 71-year-old gentleman who is known to me for previous l eft total hip replacement. He has end-stage arthritis to his right hip. He returns for planned righ t hip replacement. He understood the risks, benefits, alternatives, and wished to proceed. Written consent was signed and placed in patient's chart. HOSPITAL COURSE: The patient was admitted to the hospital floor after uncomplicated total hip arthro plasty. He tolerated the procedure well. He had no postoperative complications. At the time of dis charge, he is tolerating an oral diet. Pain is well controlled on oral medicines. He is voiding wit hout difficulty. He has negative Austen's bilaterally. X-rays are stable with anatomic alignment, co ncentric reduction without fracture. DISCHARGE ACTIVITY: Weightbearing as tolerated, anterior hip precautions, daily dressing changes. N o soaking or immersion. He may shower without the bandage. FOLLOWUP: Two weeks. Seek attention for increasing redness, swelling, drainage, discharge, or other focal complaints. DISCHARGE MEDICATIONS: Oxycodone 5 mg 1-2 every 4 hours p.r.n. pain and aspirin 325 mg p.o. daily fo r 6 weeks. /[id number]/MODL
--- NOTE | 2017-09-07 21:47 | GOP ---
[f rep st] OPERATIVE REPORT DATE OF OPERATION: 09/05/2017 SURGEON: Los Alfonso MD ACCESS DIRECTOR: Kalpesh Pichardo, surgical instrument mechanic, who was a medical necessity for the entirety of the case. Also present ESDRAS Jasmine. PREOPERATIVE DIAGNOSIS: Right hip degenerative joint disease. POSTOPERATIVE DIAGNOSIS: Right hip degenerative joint disease. PROCEDURE PERFORMED: Right total hip [id number]. FINDINGS: SPECIMENS: To Pathology, the femoral head. INDICATIONS: The patient is a 71-year-old gentleman who is known to me for previous left total hip r eplacement. He has history of ankylosing spondylitis. End-stage arthritis to his right hip. Clinic al and radiographic features are consistent with this. He has failed all attempts at conservative ma nagement. I have therefore recommended total hip replacement. He understood this and wished to proc eed. Written consent was signed and placed in patient's chart. DESCRIPTION OF PROCEDURE: The patient was identified in the preanesthesia area. The right hip clear ly demarcated as the operative site with indelible marker. He was given 2 g of Ancef intravenously e n route to the operative suite. In the OR, general endotracheal anesthesia was administered. Attent ion was turned to the right hip which was sterilely prepped and draped in the usual fashion. Appropr iate time-out procedure was carried out. The pelvis and both lower extremities were sterilely preppe d and draped in usual fashion. Attention was first turned to the left hemipelvis. A 2 cm incision w as made over the ASIS and 3 pins were then placed into the pelvic table. The pelvic reference array was then affixed. Attention was then turned to the right hip. An anterior approach was made. Thick subcutaneous flaps were elevated. The fascia was opened in a linear fashion and the tensor retracte d in a lateral direction. The underlying vascular structures were identified, cauterized, ligated an d transected. The rectus was elevated off the anterior capsule. Retractors placed across the medial and superior aspect of the femoral neck. A T was made in the capsule and retractors placed into an intracapsular position. An acetabular checkpoint was then placed. The bony wedge was withdrawn from the femoral neck followed by the femoral head. The remnants of the acetabular labrum were sharply e xcised. The bony landmarks were entered into the computer in standard fashion. Using the MAKOplasty robot, a size 54 mm reamer was placed in an opening angle of 40 degrees and anteversion of 20 degree s to the appropriate depth. A Tritanium acetabular shell was then impacted in the same position up t o the appropriate depth. This confirmed to be fully seated and stable and X3 0 degree liner was plac ed and attention was then turned to the femur. The femur was delivered through the wound with extens ion of the table, soft tissue releases. The proximal canal was opened and broaching carried out to a size 4 stem. Trial reduction was carried out with a 36 mm -5 mm neck length head. This allowed ful l congregation of the leg lengths, stability with full extension, external rotation of 90 degrees with out subluxation. The trial femoral stem was withdrawn. The final 127 degree neck angle hip stem was then impacted, confirmed to be fully seated. A 36 mm -5 mm Biolox head was then placed. The hip was copiously irrigated and reduced. Stability profile w as as previous. The soft tissue was injected with a joint cocktail of ropivacaine, morphine, Toradol , and epinephrine. The fascia was closed using 0 Vicryl, subcutaneous tissue using 2-0 Monocryl and the skin was stapled. Sterile dressing was applied. The patient was awakened, extubated, taken whit very room in good and stable condition. TOTAL TOURNIQUET TIME: None. COMPLICATIONS: None. IMPLANTS: Morganza Tritanium acetabular shell, size 54 mm; Trident X3 0-degree polyethylene insert, 3 6 mm, Accolate 227 degree neck angle hip stem size 4 and a Biolox Delta ceramic head, 36 mm -5 mm nec k length. DISPOSITION: To the recovery room, then the floor. He is weightbearing as tolerated. Anterior hip precautions. /[id number]/MODL
== END 2017-09-06 10:52 | disposition home or self-care (01) | DRG 470 ==
LOC: F3N 12:59
PROVIDERS: ADMIT Orthopaedic Surgery; ATTEND Orthopaedic Surgery
PROC: 0SR904Z Replacement of Right Hip Joint with Ceramic on Polyethylene Synthetic Substitute, Open Approach (ICD-10-PCS; principal; 2017-09-05 14:45)
DX: M16.11 Unilateral primary osteoarthritis, right hip (principal); I10 Essential (primary) hypertension; G47.33 Obstructive sleep apnea (adult) (pediatric); Z96.642 Presence of left artificial hip joint
CPT/HCPCS: 97110-GP; 97161-GP; 97165-GO; G8978-GP-CI; G8979-GP-CI; G8980-GP-CI; G8987-GO-CI; G8988-GO-CI; G8989-GO-CI; J0171; J0690; J1100; J1885; J2405; J2704; J2795; J3010

== ENCOUNTER → 2017-09-08 | Outpatient (CLI) | payer OTHER | LOC: BMCIMAGING 11:06 | PROVIDERS: ATTEND Orthopaedic Surgery | DX: Z47.1 Aftercare following joint replacement surgery (principal); Z96.641 Presence of right artificial hip joint ==

== ENCOUNTER → 2017-10-17 | Outpatient (CLI) | payer OTHER | LOC: BMCIMAGING 13:47 | PROVIDERS: ATTEND Physician Assistant | DX: Z09 Encounter for follow-up examination after completed treatment for conditions other than malignant neoplasm (principal); Z96.643 Presence of artificial hip joint, bilateral ==

== ENCOUNTER → 2017-11-24 | Outpatient (CLI) | payer OTHER | LOC: BMCIMAGING 11:08 | PROVIDERS: ATTEND Orthopaedic Surgery | DX: Z47.1 Aftercare following joint replacement surgery (principal); Z96.643 Presence of artificial hip joint, bilateral ==

== ENCOUNTER → 2018-10-06 | Outpatient (CLI) | payer OTHER | LOC: FIMAGING 07:13 | PROVIDERS: ATTEND Orthopaedic Surgery | DX: M75.112 Incomplete rotator cuff tear or rupture of left shoulder, not specified as traumatic (principal); M75.52 Bursitis of left shoulder ==

== ENCOUNTER → 2018-10-30 | Outpatient (CLI) | payer OTHER | LOC: FIMAGING 16:45 | PROVIDERS: ATTEND Neurological Surgery | DX: M45.0 Ankylosing spondylitis of multiple sites in spine (principal); M89.38 Hypertrophy of bone, other site; M48.061 Spinal stenosis, lumbar region without neurogenic claudication; M51.34 Other intervertebral disc degeneration, thoracic region ==

== ENCOUNTER → 2018-11-05 | Outpatient (CLI) | payer OTHER | LOC: FIMAGING 07:55 | PROVIDERS: ATTEND Neurological Surgery | DX: M53.87 Other specified dorsopathies, lumbosacral region (principal); M48.07 Spinal stenosis, lumbosacral region; M45.5 Ankylosing spondylitis of thoracolumbar region ==

== ENCOUNTER 2019-01-30 05:41 | Inpatient (IN) | payer OTHER ==
[2019-01-30] MEDS ORDERED: ACETAMINOPHEN 500 MG TAB PO ONE (06:06)
[2019-01-30] MEDS ORDERED: LIDOCAINE 1% 2 ML INJ ID PRN (06:06)
[2019-01-30] MEDS ORDERED: morphINE PF 0.2 MG in SYRINGE INTRATHECAL 1 SYR IT ONE (06:06)
[2019-01-30] MEDS ORDERED: morphINE SR 15 MG TAB PO ONE (06:06)
[2019-01-30] MEDS ORDERED: LR 1,000 ML IV ONE (06:06)
[2019-01-30] MEDS ORDERED: GABAPENTIN 300 MG CAP PO ONE (06:06)
[2019-01-30] MEDS ORDERED: ceFAZolin 2 GM/DEXTROSE 100 ML IV ONE (06:06)
--- NOTE | 2019-01-30 06:16 | PDHPUP ---
History & Physical Update H&P update statement: This history and physical update is based on an assessment of the patient which was completed after admission or registration (within 24 hours), but prior to the surgery/procedure. H&P update: H&P reviewed & patient examined, no change in patient's condition since H&P completed (consents signed and site marked. all questions answered. )
[2019-01-30] MEDS ORDERED: BUPIVACAINE/EPI 0.25% 30 ML SDV ONE (06:45)
[2019-01-30] MEDS ORDERED: THROMBIN (BOVINE) 20,000 UNIT VIAL TP ONE (06:45)
[2019-01-30] MEDS ORDERED: CHLORHEXIDINE GLUC HIBICLENS 118 ML BTL TP ONE (06:45)
[2019-01-30] MEDS ORDERED: BACITRACIN 50,000 UNITS/10 ML SYR IRR ONE (06:46)
--- NOTE | 2019-01-30 06:56 | PDANEPAE ---
ANE History of Present Illness back pain ANE Past Medical History - Cardiovascular History Hx Hypertension: Yes Hx Arrhythmias: No Hx Chest Pain: No Hx Coronary Artery / Peripheral Vascular Disease: No Hx CHF / Valvular Disease: No Hx Palpitations: No Cardiovascular History Comment: HLD - Pulmonary History Hx COPD: No Hx Asthma/Reactive Airway Disease: No Hx Recent Upper Respiratory Infection: No Hx Sleep Apnea: No Sleep Apnea Screening Result - Last Documented: Positive Pulmonary History Comment: + JOVANNI sleep study in 2008. Pt says he was upset during the study due to a family situation, and does not believe the results. Will not use CPAP. Deviated septum. Ankylosiing spondylitis causes restricted abiltity to breathe. - Neurologic History Hx Cerebrovascular Accident: No Hx Seizures: No Hx Dementia: No - Endocrine History Hx Diabetes: No Hypothyroid: No Hyperthyroid: No Obesity: no Endocrine History Comment: Borderline pre-diabetic, does not use medications. - Renal History Hx Renal Disorders: No - Liver History Hx Hepatic Disorders: No - Neurological & Psychiatric Hx Hx Neurological and Psychiatric Disorders: No - Cancer History Hx Cancer: Yes Cancer History Comment: Prostate CA s/p prostatectomy. Basal cell CA s/p resection. Mar's esophagus - Congenital Disorder History Hx Congenital Disorders: No - GI History GERD: mild Hx Gastrointestinal Disorders: Yes Gastrointestinal History Comment: GERD s/p fundoplication. Mar's esophagus - Other Health History Other Health History: Bilateral cataract surgery. Ankylosing spondylitis. OA bilateral hips. Iritis. Deviated septum s/p corrective surgery - Chronic Pain History Chronic Pain: Yes - Surgical History Prior Surgeries: Bilateral cataract surgery 2018. L RTC repair 1998, 2nd surgery planned for 04/2019. R RTC repair ~2001. L ATIF 06/13/17. R ATIF 2016. EGD 04/29/16. L calf BCC resection 2014. Laparascopic cholecystectomy 2000. Grace fundopluplication 2000. Radical prostatectomy w/ lymph node dsxn , 1998. Septorhinoplasty 1966, revision ~2009 ANE Review of Systems Review of systems is: negative Review of Systems: - Exercise capacity METS (RN): 4 METS ANE Patient History - Allergies Allergies/Adverse Reactions: CATS Allergy (Mild, Uncoded 04/13/10 09:47) ITCHY EYES ENVIRONMENTAL Allergy (Mild, Uncoded 04/13/10 09:48) SNEEZING/ITCHY, WATERY EYES - Home Medications Home medications: home medication list seen and reviewed Home Medications: Acetaminophen [Tylenol 325mg (*)] 1,300 mg PO BID 01/25/19 [Last Taken Unknown] Ascorbic Acid [Vitamin C 500 mg (*)] 500 mg PO DAILY 01/25/19 [Last Taken ] Cholecalciferol Vit D3 [Vitamin D3 2000 units tab (OTC)] 2,000 units PO DAILY [Last Taken 01/23/19] Cyclobenzaprine [Flexeril 10 MG (*)] 10 mg PO HS 01/25/19 [Last Taken Unknown] Glucosamine/Chondroitin [Glucosamine/Chondroitin (*)] 1 each PO BID 01/25/19 [ Last Taken 01/23/19] Herbals/Supplements -Info Only 1 each PO DAILY 01/25/19 [Last Taken 01/23/19] Indomethacin 75 mg PO BID 01/25/19 [Last Taken 01/23/19] Lisinopril/Hydrochlorothiazide [Zestoretic 20-25 mg Tablet] 1 each PO BID [Last Taken Unknown] Multivitamins [Multivitamin (*)] 1 each PO DAILY 01/25/19 [Last Taken 01/23/19] Omeprazole 20 mg PO BID 01/25/19 [Last Taken Unknown] Simvastatin [Zocor] 40 mg PO DAILY 01/25/19 [Last Taken Unknown] Vitamin B Complex [Vitamin B Complex (OTC)] 1 each PO DAILY 01/25/19 [Last Taken 01/23/19] amLODIPine BESYLATE [Norvasc 5 mg (*)] 5 mg PO DAILY 01/25/19 [Last Taken Unknown] traMADol [Ultram 50 mg (*)] 50 mg PO BID 01/25/19 [Last Taken Unknown] - NPO status NPO Status: no food or drink >8 hours NPO Since - Liquids (Date): 01/30/19 NPO Since - Liquids (Time): 04:00 NPO Since - Solids (Date): 01/29/19 NPO Since - Solids (Time): 23:00 - Anes Hx Anes Hx: no prior problems - Smoking Hx Smoking Status: Never smoked - Family Anes Hx Family Anes Hx: none Family Hx Anesthesia Complications: NONE. ANE Labs/Vital Signs - Vital Signs Height: 162.56 cm Weight: 90.718 kg ANE Physical Exam - Airway Neck exam: decreased ROM, spinal fusion Mallampati Score: Class 3 Mouth exam: normal dental/mouth exam - Pulmonary Pulmonary: no respiratory distress, clear to auscultation - Cardiovascular Cardiovascular: regular rate and rhythym, no murmur, rub, or gallop - ASA Status ASA Status: III ANE Anesthesia Plan Anesthesia Plan: general endotracheal anesthesia
[2019-01-30] MEDS ORDERED: PROPOFOL/EMULSION 500 MG/50 ML BOTTLE IV ONE (06:59)
[2019-01-30] MEDS ORDERED: fentaNYL 250 MCG/5 ML INJ ONE (06:59)
[2019-01-30] MEDS ORDERED: SUCCINYLCHOLINE CHLORIDE 200 MG/10 ML SYR IVP ONE (07:31)
[2019-01-30] MEDS ORDERED: ePHEDrine SULFATE 25 MG/5 ML SYR ONE (07:31)
[2019-01-30] MEDS ORDERED: PHENYLEPHRINE HCL 100 MCG/ML SYR ONE (07:52)
[2019-01-30] MEDS ORDERED: PROMETHAZINE HCL 25 MG/ML INJ IVP PRN (09:44)
[2019-01-30] MEDS ORDERED: LR 500 ML IV PRN (09:44)
[2019-01-30] MEDS ORDERED: PHENYLEPHRINE HCL 100 MCG/ML SYR IVP PRN (09:44)
[2019-01-30] MEDS ORDERED: NALOXONE HCL 0.4 MG/ML INJ IVP PRN (09:44)
--- NOTE | 2019-01-30 09:44 | POSTANESTH ---
Post Anesthetic Evaluation Cardiovascular Status: Normal, Stable Respiratory Status: Normal, Stable Level of Consciousness/Mental Status: Can Participate in Eval Pain Control: Adequate, Prn Tx Ordered Nausea/Vomiting Control: Adequate, Prn Tx Ordered Complications Possibly Related to Anesthesia: None Noted
[2019-01-30] MEDS ORDERED: ONDANSETRON 4 MG/2 ML VIAL ONE (09:58)
[2019-01-30] MEDS ORDERED: fentaNYL 100 MCG/2 ML INJ ONE (10:24)
[2019-01-30] MEDS ORDERED: ONDANSETRON 4 MG/2 ML VIAL IVP PRN (10:25)
[2019-01-30] MEDS ORDERED: diphenhydrAMINE 25 MG CAP PO PRN (10:25)
[2019-01-30] MEDS ORDERED: ONDANSETRON DISINTEGRATING 4 MG TAB PO PRN (10:25)
[2019-01-30] MEDS ORDERED: LACTULOSE 20 GM/30 ML UDCUP PO PRN (10:25)
[2019-01-30] MEDS ORDERED: BISACODYL 10 MG SUPP PR PRN (10:25)
[2019-01-30] MEDS ORDERED: MAGNESIUM HYDROXIDE 30 ML UDCUP PO PRN (10:25)
[2019-01-30] MEDS ORDERED: DIAZEPAM 10 MG/2 ML SYR ONE ×2 (10:26→11:47)
[2019-01-30] MEDS: fentaNYL 100 MCG/2 ML INJ IVP PRN ×2 (10:28→10:56)
[2019-01-30] MEDS: DIAZEPAM 10 MG/2 ML SYR IVP PRN ×3 (10:29→11:47)
[2019-01-30] MEDS ORDERED: NS 1,000 ML IV SCH (10:30)
--- NOTE | 2019-01-30 10:33 | POSTOPPROG ---
Post Op Note Date of Operation: 01/30/19 Surgeon: Jaxson Tierney Paper Colorer: Shara Quintero NP Anesthesiologist: Dr Goldman Anesthesia: GET(General Endotracheal) Pre-op Diagnosis: Lumbar stenosis Post-op Diagnosis: Lumbar stenosis Procedure: L5-S1 laminectomy/TLIF with PSF L4-S1 Inf/Abcess present in the surg proc area at time of surgery?: No Depth: Deep Incisional (Fascial) EBL: 100-500 Total fluids administered: see anesthesia Complications: none Drains: Damion Morales Date of Surgery: 01/30/19 Post Op Day: 0 Assessment/Plan: Assessment: 73 yr old male s/p L5-S1 laminectomy with left L5-S1 TLIF, PSF L4- S1 Plan: -Admit ortho/neuro -Pain management-pt received IT Duramorph at 0943 -Post op xrays pending -PT/OT -Wear brace when out of bed -MICHAEL to bulb suction Subjective: waking up in pacu Objective: waking up in pacu MAEx4 5/5 BLE Dressing CDI MICHAEL patent Appropriate Neuro Check Frequency Ordered: Yes
--- NOTE | 2019-01-30 11:08 | GOP ---
[f rep st] OPERATIVE REPORT DATE OF OPERATION: 01/30/2019 SURGEON: Jaxson Tierney MD EQUAL OPPORTUNITY OFFICER: Shara Quintero NP. ANESTHESIA: General. PREOPERATIVE DIAGNOSIS: 1. Ankylosing spondylitis with low back pain. 2. L5-S1 lumbar spondylosis. 3. Treatment refractory to nonoperative intervention. POSTOPERATIVE DIAGNOSIS: 1. Ankylosing spondylitis with low back pain. 2. L5-S1 lumbar spondylosis. 3. Treatment refractory to nonoperative intervention. PROCEDURE PERFORMED: 1. Posterior arthrodesis with approach to L4, L5, and S1. 2. Posterolateral fusion with bilateral pedicle screw placement into L4, L5, and S1 from [employer] Cloud[employer] 4.75 system. 3. Posterolateral fusion on the right, L4 through S1, with morselized autograft and allograft. 4. Left-sided L5-S1 hemilaminotomy, facetectomy, diskectomy, and interbody fusion using a 7 x 22 mm titanium coated polyetheretherketone cage filled with morselized autograft and allograft. 5. Use of intraoperative 3D Stealth navigation. 6. Use of intraoperative fluoroscopy, less than 1 hour physician time. 7. Use of neuromonitoring. 8. Use of operating microscope. 9. Injection of preservative-free intrathecal narcotics. FINDINGS: per imaging SPECIMENS: None. ESTIMATED BLOOD LOSS: 50 mL. INDICATIONS: The patient is a very pleasant 73-year-old gentleman with a history of prior ankylosing spondylitis diagnosis. He presented with ongoing low back pain which was either emanating from his L5-S1 or SI joints. The patient underwent diagnostic facet blocks bilaterally at L5-S1 which patient states almost took away his pain 100%. After discussion of risks, benefits, and treatment alternatives and after failing nonoperative intervention, we decided to proceed forth with surgery as described above. DESCRIPTION OF PROCEDURE: The patient was brought to the operating theater and underwent general endotracheal anesthesia without complications. He had Venodynes, LAUREN hose, and the appropriate lines placed by Anesthesia. He was flipped prone onto the Damion table and all bony prominences inspected and padded. Using lateral fluoroscopy and a spinal needle, we picked our entry point to the L4 through S1 levels. This was marked in the midline. This area was prepped and draped in the usual sterile surgical fashion. A time-out was completed per protocol and the patient received antibiotics within 1 hour of incision. The incision was infiltrated with Marcaine with epinephrine. The incision was taken down with the scalpel blade. Using monopolar, the incision was taken down in the midline through the lumbodorsal fascia and subperiosteal dissection carried out to the transverse process of L4, L5, and S1. Deep retractors were placed to maintain our exposure. We confirmed our level using lateral fluoroscopy. I was concerned about completing a single level fusion below a large moment arm of from his ankylosing spondylitis and decided to add a set of screws into L4 to help with fusion stability. We attached the 3D Stealth navigation clamp to the spinous process of L5 and completed a 3D Stealth navigation spin. Using 3D Stealth navigation, we picked our entry point for aircraft pilot holes for the bilateral pedicle screws at L4, L5, and S1. All holes were manually palpated with no evidence of any cortical breaches. We then tapped and placed 6.5 x 45 mm screws bilaterally at L4 and L5 and 6.5 x 55 mm screws bilaterally at S1 with Channel M 4.75 system. Another 3D Stealth navigation spin demonstrated good placement of the hardware. At this point, the microscope was brought into the field to assist with microscopic dissection and to maintain illumination and magnification. Using a combination of the bur tip on the drill bit and Kerrison punches, we completed a left-sided L5-S1 hemilaminotomy with facetectomy. We then distracted the interspace and completed left-sided L5-S1 diskectomy. We prepared the cartilaginous endplates and measured the interbody space. We placed a 7 x 22 mm titanium coated PEEK cage filled with morselized autograft and allograft anteriorly and toward the midline. We packed additional morcellized autograft in the disk space for the interbody fusion. We let down the distraction and decorticated the bone on the right side between L4 and S1. We placed 2 lordotic rods into the heads of the screws between L4 and S1 and secured them down with cap screws which were tightened per the order selector's setting. The wound was irrigated copiously with bacitracin irrigation. We placed morselized autograft and allograft on the right side between L4 through S1 for the posterolateral fusion. We injected preservative-free intrathecal narcotics. A drain was left in the subfascial space. The wound was then closed in multiple layers using Vicryl sutures to the deep layers and Dermabond for the skin. The patient's wounds were dressed sterilely. He was then flipped supine onto the transfer cart where he was extubated and taken to the recovery room in stable condition. There were no complications and no noted changes on neuromonitoring throughout the procedure. COMPLICATIONS: None. /[id number]/MODL MTDD
[2019-01-30] MEDS ORDERED: HYDROmorphONE/DILAUDID 1 MG/ML INJ ONE (11:43)
[2019-01-30] MEDS ORDERED: HYDROmorphONE/DILAUDID 1 MG/ML INJ IVP ONE ×2 (11:45)
[2019-01-30] MEDS ORDERED: oxyCODONE IR 5 MG TAB PO ONE (11:45)
[2019-01-30] MEDS ORDERED: oxyCODONE IR 5 MG TAB ONE (12:15)
[2019-01-30] MEDS: ACETAMINOPHEN 500 MG TAB PO SCH ×2 (13:47→21:40)
[2019-01-30] MEDS: ceFAZolin 2 GM/DEXTROSE 100 ML IV SCH ×2 (14:50→21:41)
--- NOTE | 2019-01-30 18:08 | PDMN ---
Medical Necessity Medical necessity: 73 yo s/p L5-S1 TLIF lum fajardo fusion, CPT 90820, MCG S820 Lumbar Fusion, 2 days, MC IP only
[2019-01-30] MEDS: LISINOPRIL/HCTZ 10/12.5 MG 1 EA TAB PO SCH (18:43)
[2019-01-30] MEDS: oxyCODONE IR 5 MG TAB PO PRN (20:49)
[2019-01-30] MEDS: FAMOTIDINE 20 MG TAB PO SCH (20:50)
[2019-01-30] MEDS: PANTOPRAZOLE SODIUM 40 MG TAB PO SCH (20:50)
[2019-01-30] MEDS: CYCLOBENZAPRINE 10 MG TAB PO SCH (20:50)
[2019-01-30] MEDS: SENNOSIDES/DOCUSATE SODIUM TAB PO SCH (20:50)
[2019-01-30] MEDS: METHOCARBAMOL 750 MG TAB PO PRN (22:57)
[2019-01-31] MEDS: oxyCODONE IR 5 MG TAB PO PRN ×6 (00:29→23:06)
[2019-01-31] MEDS: METHOCARBAMOL 750 MG TAB PO PRN ×4 (05:20→23:05)
[2019-01-31 05:55] LABS: PLATELET COUNT 399 10^3/uL (150-400)
[2019-01-31] MEDS: ACETAMINOPHEN 500 MG TAB PO SCH ×3 (06:13→22:09)
--- NOTE | 2019-01-31 07:36 | SOAPPROG ---
SOAP Progress Note Assessment/Plan: Assessment: 73 yo male POD #1 s/p L5/S1 TLIF with L4-S1 fusion doing well. No new issues. He is independantly ambulating in brace with walker Plan: Continue MICHAEL drain Xrays L spine today PT/OT 01/31/19 07:34 Subjective: Sitting at EOB. Pain controlled. Denies new numbness tingling or weakness. Objective: Vital Signs Temp Pulse Resp BP Pulse Ox 36.6 C 87 17 136/77 H 94 01/31/19 03:40 01/31/19 03:40 01/31/19 03:40 01/31/19 03:40 01/31/19 03:40 Laboratory Results 01/31/19 04:54 01/31/19 04:54 01/30/19 01/31/19 02/01/19 05:59 05:59 05:59 Intake Total 2913 Output Total 3815 Balance -902 Neuro: NERI, sens +LT Dressing: CDI MICHAEL: 340 ml ICD10 Worksheet Patient Problems: Problems Problem Status Onset Lumbar degenerative disc disease Acute - ICD10 Problem Qualifiers (1) Lumbar degenerative disc disease
[2019-01-31] MEDS: PANTOPRAZOLE SODIUM 40 MG TAB PO SCH ×2 (08:06→20:33)
[2019-01-31] MEDS: amLODIPine BESYLATE 5 MG TAB PO SCH (08:06)
[2019-01-31] MEDS: FAMOTIDINE 20 MG TAB PO SCH ×2 (08:06→20:33)
[2019-01-31] MEDS: SENNOSIDES/DOCUSATE SODIUM TAB PO SCH ×2 (08:06→20:33)
[2019-01-31] MEDS: ATORVASTATIN CALCIUM 20 MG TAB PO SCH (08:06)
[2019-01-31] MEDS: LISINOPRIL/HCTZ 10/12.5 MG 1 EA TAB PO SCH ×2 (12:18→19:10)
--- NOTE | 2019-01-31 14:07 | ASMTCMCOM ---
CM Note CM Note Notes: Pt had planned surgery for lumbar stenosis. PT/OT rec home. Anticipate pt will d/c with spouse support when medically stable. No CM d/c needs identified. CM available for changes/needs. Date Signed: 01/31/2019 02:06 PM Electronically Signed By:JEFFREY Melendez
[2019-01-31] MEDS: POLYETHYLENE GLYCOL 3350 17 GM PKT PO PRN (17:02)
[2019-01-31] MEDS: CYCLOBENZAPRINE 10 MG TAB PO SCH (20:33)
[2019-02-01] MEDS: oxyCODONE IR 5 MG TAB PO PRN ×5 (03:21→23:52)
[2019-02-01] MEDS: ACETAMINOPHEN 500 MG TAB PO SCH ×3 (06:23→22:42)
[2019-02-01] MEDS: METHOCARBAMOL 750 MG TAB PO PRN (06:23)
--- NOTE | 2019-02-01 08:25 | NEUSURGPN ---
Date of Surgery: 01/30/19 Post Op Day: 2 Assessment/Plan: Assessment: 73 yr old male s/p L5-S1 laminectomy with left L5-S1 TLIF, PSF L4- S1 POD#2 Plan: -Admit ortho/neuro -Pain management-will change Robaxin to scheduled -Post op xrays show stable hardware placement -PT/OT -Wear brace when out of bed -Remove MICHAEL at noon today -Patient was seen by Dr Tierney this am as well Please call with questions/concerns Subjective: doing well, sitting in chair. Expected back pain Objective: AxOx4 MAEx4 5/5 BLE Sensation intact to light touch BLE Dressing/Incision CDI MICHAEL patent Neuro Check Frequency: per routine Urinary Catheter in Place: No - Physician Patient Seen by : [facility] Neurosurgery Physical Exam - Vitals, I&O, Labs I and O 01/31/19 02/01/19 02/02/19 05:59 05:59 05:59 Intake Total 2913 1800 Output Total 3815 1530 600 Balance -902 270 -600 Weight 90.718 kg Intake: Oral (ml) 1050 1800 IV Intake (ml) 1000 IV Infused (ml) 863 Ns 1,000 ml @ 75 mls/hr 548 IV CONT MELE Rx#: [id number] ceFAZolin 2 GM/DEXTROSE 100 100 ml @ 200 mls/hr IV ONCALL ONE Rx#:[id number] ceFAZolin 2 GM/DEXTROSE 215 100 ml @ 200 mls/hr IV Q8HRS MELE Rx#:[id number] Output: Urine (ml) 3325 1450 600 Catheter 3325 Toilet 150 Urinal 1300 600 Estimated Blood Loss (ml) 150 Emesis (ml) 0 MICHAEL Drain Output (ml) 340 80 #1 Posterior Back Damion 340 80 Morales Other: Intake Quantity Yes Yes Sufficient Number of Voids Catheter 1 Toilet 1 Vital Signs Temp Pulse Resp BP Pulse Ox 36.7 C 82 16 124/69 H 95 01/31/19 23:26 01/31/19 23:26 01/31/19 23:26 01/31/19 23:26 01/31/19 23:26 Laboratory Results 01/31/19 04:54 01/31/19 04:54 ICD10 Worksheet Patient Problems: Problems Problem Status Onset Lumbar degenerative disc disease Acute
[2019-02-01] MEDS ORDERED: METHOCARBAMOL 750 MG TAB PO SCH ×2 (08:27→14:00)
[2019-02-01] MEDS: POLYETHYLENE GLYCOL 3350 17 GM PKT PO PRN (08:33)
[2019-02-01] MEDS: SENNOSIDES/DOCUSATE SODIUM TAB PO SCH ×2 (08:34→21:57)
[2019-02-01] MEDS: ENOXAPARIN 40 MG/0.4 ML SYR SC SCH (08:35)
[2019-02-01] MEDS: amLODIPine BESYLATE 5 MG TAB PO SCH (08:35)
[2019-02-01] MEDS: PANTOPRAZOLE SODIUM 40 MG TAB PO SCH ×2 (08:35→19:59)
[2019-02-01] MEDS: FAMOTIDINE 20 MG TAB PO SCH ×2 (08:35→19:59)
[2019-02-01] MEDS: ATORVASTATIN CALCIUM 20 MG TAB PO SCH (08:35)
[2019-02-01] MEDS: METHOCARBAMOL 750 MG TAB PO SCH ×3 (12:41→21:56)
[2019-02-01] MEDS: LISINOPRIL/HCTZ 10/12.5 MG 1 EA TAB PO SCH ×2 (12:41→19:59)
[2019-02-01] MEDS: CYCLOBENZAPRINE 10 MG TAB PO SCH (22:00)
[2019-02-02] MEDS: METHOCARBAMOL 750 MG TAB PO SCH ×3 (01:50→10:10)
[2019-02-02] MEDS: oxyCODONE IR 5 MG TAB PO PRN ×2 (04:21→08:11)
[2019-02-02] MEDS: ACETAMINOPHEN 500 MG TAB PO SCH (06:36)
[2019-02-02 07:49] VITALS: BP 123/71
[2019-02-02] MEDS: SENNOSIDES/DOCUSATE SODIUM TAB PO SCH (08:06)
[2019-02-02] MEDS: PANTOPRAZOLE SODIUM 40 MG TAB PO SCH (08:06)
[2019-02-02] MEDS: ATORVASTATIN CALCIUM 20 MG TAB PO SCH (08:07)
[2019-02-02] MEDS: ENOXAPARIN 40 MG/0.4 ML SYR SC SCH (08:07)
[2019-02-02] MEDS: FAMOTIDINE 20 MG TAB PO SCH (08:07)
[2019-02-02] MEDS: amLODIPine BESYLATE 5 MG TAB PO SCH (08:07)
--- NOTE | 2019-02-02 08:53 | NEUSURGPN ---
Date of Surgery: 01/30/19 Post Op Day: 3 Assessment/Plan: Assessment: 73 yr old male s/p L5-S1 laminectomy with left L5-S1 TLIF, PSF L4- S1 POD#3 Plan: -Neuro stable -Pain management-controlled on current regimen -Post op xrays show stable hardware placement -PT/OT -Wear brace when out of bed -Discharge to home today Please call with questions/concerns Discussed with Dr. Tierney. Subjective: Doing well this morning. LE symptoms improved. Up ambulating the halls. Objective: Awake. Alert. PERRL. EOMI Facial expression symmetrical Muscle strength full at 5/5 Sensation intact Incision with dressing c/d/i - Physician Discussed Patient with : Kelsy Neurosurgery Physical Exam - Vitals, I&O, Labs I and O 02/01/19 02/02/19 02/03/19 05:59 05:59 05:59 Intake Total 1800 1500 Output Total 1530 600 Balance 270 900 Intake: Oral (ml) 1800 1500 Output: Urine (ml) 1450 600 Toilet 150 Urinal 1300 600 MICHAEL Drain Output (ml) 80 #1 Posterior Back Damion 80 Morales Other: Intake Quantity Yes Yes Sufficient Number of Voids Toilet 1 2 Urinal 1 Number of Stools Urinal 4 Vital Signs Temp Pulse Resp BP Pulse Ox 36.6 C 82 16 123/71 H 89 L 02/02/19 07:49 02/02/19 07:49 02/02/19 07:49 02/02/19 08:07 02/02/19 07:49 Laboratory Results 01/31/19 04:54 01/31/19 04:54 ICD10 Worksheet Patient Problems: Problems Problem Status Onset Lumbar degenerative disc disease Acute
--- NOTE | 2019-02-02 09:52 | ASMTLACE ---
LACE Length of stay for Answers: 3 days current admission Acuity / Level of Answers: Yes Care: Did the patient have an inpatient admission? Comorbidities - select Answers: Opioid dependence all that apply / Chronic pain Other Notes: HTN; HLD; Mar's esophagus # of Emergency department Answers: 0 visits in the last 6 months Score: 11 Date Signed: 02/02/2019 09:51 AM Electronically Signed By:JEFFREY Melendez
--- NOTE | 2019-02-09 12:07 | GDS ---
[f rep st] DISCHARGE SUMMARY PRIMARY DIAGNOSES: Lower back pain, lumbar stenosis. OPERATIONS AND PROCEDURES: On January 30, 2019, Dr. Jaxson Tierney performed an L5-S1 laminectomy with tr ansforaminal lumbar interbody fusion with a posterior spinal fusion from L4-S1. HOSPITAL COURSE: Patient is a 73-year-old gentleman who was admitted to [facility] on January 20, 2019, to undergo surgery with Dr. Jaxson Tierney. Dr. Tierney performed L5-S1 laminectomy with a left- sided L5-S1 transforaminal lumbar interbody fusion and posterior spinal fusion of L4 to S1. Please s ee Dr. Tierney's operative note for further details. The patient tolerated the procedure and followin g surgery was transferred reported to the recovery room and then to the postsurgical floor. While on the postsurgical floor, patient underwent physical and occupational therapy, as well as Pain Management. All drains and catheters were removed. Patient subsequently was discharged home on February 02, 2019. Patient was instructed to call our office at [phone] with any questions or concerns. Patient is scheduled to follow up in the office for postoperative visit in 2 to 3 weeks. COMPLICATIONS: None. DISCHARGE CONDITION: Stable. DISCHARGE INSTRUCTIONS: The patient is to avoid any bending or twisting. Patient is to avoid liftin g greater than 10 pounds. Patient has been instructed to wear his brace anytime he is out of bed, ex cept for in the shower. Patient will avoid NSAIDs for the next 6 months. Dental prophylaxis has bee n discussed. It is okay for the patient to shower on postoperative day 3, but recommend avoiding sub merging his incision for the next 2 to 3 weeks. Patient will call our office with any questions or c oncerns. /[id number]/MODL
== END 2019-02-02 11:20 | disposition home or self-care (01) | DRG 460 ==
LOC: F3N 05:41
PROVIDERS: ADMIT Neurological Surgery; ATTEND Neurological Surgery
DX: M45.7 Ankylosing spondylitis of lumbosacral region (principal); M45.6 Ankylosing spondylitis lumbar region; M47.896 Other spondylosis, lumbar region; M47.897 Other spondylosis, lumbosacral region; K21.9 Gastro-esophageal reflux disease without esophagitis; I10 Essential (primary) hypertension; K22.70 Barrett's esophagus without dysplasia; E78.5 Hyperlipidemia, unspecified; Z85.46 Personal history of malignant neoplasm of prostate; Z96.643 Presence of artificial hip joint, bilateral
CPT/HCPCS: 97116-GP; 97161-GP; 97165-GO; 97535-GO; C1713; J0330; J0690; J1170; J1650; J2270; J2274; J2370; J2405; J2704; J3010; J3360

== ENCOUNTER → 2019-03-14 | Outpatient (CLI) | payer OTHER | LOC: FIMAGING 13:47 ==